=== PATIENT | female | born 1980 | race Caucasian/White ===

== ENCOUNTER 2021-05-06 12:19 | Emergency (ER) | payer SELFPAY ==
[~2021-05-06] VITALS: Ht 152.4 cm; Wt 68.0 kg
[2021-05-06] MEDS ORDERED: KETOROLAC 60 MG/2 ML VIAL. IM ONE (13:15)
--- NOTE | 2021-05-06 13:15 | PHYS DOC ---
General Adult EDM: Chief Complaint: MECHANICAL FALL HPI: HPI: Patient is a 40-year-old female who presents to the emergency department for generalized head pain following a fall that occurred on Thursday. Patient reports she tripped over a crack in the sidewalk and fell and hit her head. She denies losing consciousness. She rates her pain 9 out of 10. She is also reporting photophobia. She denies any seizure-like activity, neck/back pain, difficulty ambulating, nausea, vomiting. (SUNNI STEARNS APRN) Review of Systems: Review of Systems: Eyes: See HPI HENT: See HPI GI: See HPI Musculoskeletal: See HPI Neurologic: See HPI (SUNNI STEARNS APRN) Physical Exam: PE: Constitutional: Well developed, well nourished, no acute distress, non-toxic appearance. [] HENT: Normocephalic, atraumatic, bilateral external ears normal, oropharynx moist, no oral exudates, nose normal. [] Eyes: PERRLA, EOMI, conjunctiva normal, no discharge. [] Neck: Normal range of motion, no bony spinal tenderness, supple, no stridor. [] Cardiovascular normal peripheral perfusion Lungs & Thorax: Normal work of breathing, no tachypnea Abdomen: Soft and flat Skin: Warm, dry, no erythema, no rash. [] Back: No bony spinal tenderness, full range of motion Extremities: No tenderness, no cyanosis, no clubbing, ROM intact, no edema. [] Neurologic: Alert and oriented X 3, normal motor function, normal sensory function, no focal deficits noted. [] Psychologic: Affect normal, judgement normal, mood normal. [] (SUNNI STEARNS APRN) EKG: EKG: [] (SUNNI STEARNS APRN) Radiology/Procedures: Radiology/Procedures: []PROCEDURE: CT HEAD AND CERVICAL SPINE WO EXAM: Head an cervical spine CT without contrast. HISTORY: Fall. Headache. TECHNIQUE: Computed tomographic images of the head and cervical spine were obtained without contrast. *One or more of the following individualized dose reduction techniques were utilized for this examination: 1. Automated exposure control. 2. Adjustment of the mA and/or kV according to patient size. 3. Use of iterative reconstruction technique. COMPARISON: None. FINDINGS: Head: There is no hemorrhage. There is no mass effect or midline shift. There is no hydrocephalus. The lorenzo-white matter differentiation pattern is intact. There is no suspicious calvarial lesion. The orbits, paranasal sinuses mastoid air cells are unremarkable. Cervical spine: There is no listhesis. The vertebral bodies are normal in height. There is mild endplate remodeling and disc space narrowing at C5-C6. There is no suspicious osseous lesion. There are multiple missing and partially missing teeth. There are multiple maxillary and mandibular periapical lucencies consistent with dental disease. The combination of degenerative changes results in mild right foraminal stenosis at C4-C5. No central canal stenosis is seen. The lung apices are clear. IMPRESSION: 1. No acute intracranial finding or evidence of acute cervical spine trauma. 2. Dental disease with associated periapical lucencies, described above. Electronically signed by: Hanna Quevedo MD (05/06/2021 1:32 PM) [id number] DICTATED AND SIGNED BY: HANNA QUEVEDO MD DATE: 05/06/21 1330 CC: SUNNI STEARNS APRN; PCP,NO ~MTH0 0 (SUNNI STEARNS APRN) Heart Score: C/O Chest Pain: N/A Risk Factors: Risk Factors: DM, Current or recent (<one month) smoker, HTN, HLP, family history of CAD, obesity. Risk Scores: Score 0 - 3: 2.5% MACE over next 6 weeks - Discharge Home Score 4 - 6: 20.3% MACE over next 6 weeks - Admit for Clinical Observation Score 7 - 10: 72.7% MACE over next 6 weeks - Early Invasive Strategies (SUNNI STEARNS APRN) Course & Med Decision Making: Course & Med Decision Making Pertinent Labs and Imaging studies reviewed. (See chart for details) [] Patient presents to the emergency department following a fall. Patient is reporting generalized head pain. She is also reporting photophobia. Imaging was performed of patient's head and neck that showed no acute findings. Patient's pain was treated in the emergency department. Advised to take anti- inflammatory medications and apply ice. I discussed with patient all findings and diagnostic testing as well as the need to follow-up with PCP for further evaluation and treatment or return to the ER if any new or worsening symptoms. Strict return precautions were also discussed at length. Patient voiced understanding and agreement with the plan. Patient is hemodynamically stable at the time of disposition. (SUNNI STEARNS APRN) Dragon Disclaimer: Dragon Disclaimer: This electronic medical record was generated, in whole or in part, using a voice recognition dictation system. (SUNNI STEARNS APRN) Attending Co-Sign The patient was seen and interviewed as well as examined at the bedside. The chart was reviewed. The case was discussed. Agree with the plan of care. (MIGUE LOPEZ DO) Departure Departure: Impression: Primary Impression: Head injury Qualified Codes: S09.90XA - Unspecified injury of head, initial encounter Disposition: HOME / SELF CARE / HOMELESS Condition: GOOD Referrals: PCPBETTY (PCP) Patient Instructions: Head Injury, Adult Additional Instructions: You were seen in the emergency department for head pain following a fall. Imaging was performed of your head and neck that showed no acute findings. Your pain was treated in the emergency department. Please continue to take anti- inflammatory medications at home for your pain and you can also apply ice. Follow-up with your primary care provider tomorrow regarding your ER visit. Please return to the emergency department if you develop worsening of your pain, confusion, difficulty ambulating, intractable nausea or vomiting, vision problems, speech problems or any new or worsening concerns. SUNNI STEARNS APRN May 06, 2021 13:15 MIGUE LOPEZ DO May 06, 2021 17:06
--- NOTE | 2021-05-06 13:35 | RAD ---
EXAM: Head an cervical spine CT without contrast. HISTORY: Fall. Headache. TECHNIQUE: Computed tomographic images of the head and cervical spine were obtained without contrast. *One or more of the following individualized dose reduction techniques were utilized for this examina tion: 1. Automated exposure control. 2. Adjustment of the mA and/or kV according to patient size. 3. Use of iterative reconstruction technique. COMPARISON: None. FINDINGS: Head: There is no hemorrhage. There is no mass effect or midline shift. There is no hydrocephalus. Th e lorenzo-white matter differentiation pattern is intact. There is no suspicious calvarial lesion. The o rbits, paranasal sinuses mastoid air cells are unremarkable. Cervical spine: There is no listhesis. The vertebral bodies are normal in height. There is mild endpl ate remodeling and disc space narrowing at C5-C6. There is no suspicious osseous lesion. There are mu ltiple missing and partially missing teeth. There are multiple maxillary and mandibular periapical melani cencies consistent with dental disease. The combination of degenerative changes results in mild right foraminal stenosis at C4-C5. No central canal stenosis is seen. The lung apices are clear. IMPRESSION: 1. No acute intracranial finding or evidence of acute cervical spine trauma. 2. Dental disease with associated periapical lucencies, described above. Electronically signed by: Hanna Browne MD (05/06/2021 1:32 PM) [id number]
[2021-05-06 13:44] VITALS: BP 148/100
== END 2021-05-06 13:50 | disposition home or self-care (01) ==
LOC: ER 12:19
DX: S09.90XA Unspecified injury of head, initial encounter (principal); W18.09XA Striking against other object with subsequent fall, initial encounter; Y93.89 Activity, other specified; Y92.89 Other specified places as the place of occurrence of the external cause; Y99.8 Other external cause status
CPT/HCPCS: 70450; 72125; 96372; 99284; J1885